=== PATIENT | male | born 1935 | race Caucasian/White ===

== ENCOUNTER 2020-08-03 08:34 | Inpatient (IN) ==
--- NOTE | 2020-08-02 16:20 | XRay Report ---
CLINICAL INFORMATION: Pre-op COMPARISON: 12/03/2017 FINDINGS: Sternotomy changes noted. Heart size, mediastinum and pulmonary vessels are normal. Lungs are clear. No effusions. IMPRESSION: No acute cardiopulmonary disease - stable Interpreted and Authenticated by: Chase Falcon 08/02/20
[2020-08-02 19:47] LABS: Basophils # (Auto) 0.04 K/mcL (0.00-0.20); Basophils % (Auto) 0.8 % (0.0-2.0); Eosinophils # (Auto) 0.07 K/mcL (0.00-0.70); Eosinophils % (Auto) 1.5 % (0.0-7.0); Hematocrit 34.4 % (41.0-55.0); Lymphocytes # (Auto) 1.09 K/mcL (1.50-4.80); Lymphocytes % (Auto) 22.9 % (15.0-49.0); Mean Platelet Volume 9.7 fL (7.4-10.4); Monocytes # (Auto) 0.52 K/mcL (0.10-0.90); Monocytes % (Auto) 10.9 % (1.0-12.0); Neutrophils % (Auto) 63.9 % (38.0-78.0); Platelet Count 223 K/mcL (140-440); RBC 3.74 M/mcL (4.50-5.90); Red Cell Distribution Width 14.1 % (11.5-14.5); WBC 4.8 K/mcL (4.5-11.0)
[2020-08-02 21:48] LABS: INR 1.3 (0.9-1.1); Prothrombin Time 17.1 sec (11.9-14.5)
[2020-08-02 22:01] LABS: Partial Thromboplastin Time 35.6 sec (20.0-37.0)
[2020-08-03 00:19] LABS: ALT/SGPT 17 U/L (<40); AST/SGOT 18 U/L (<40); Albumin 4.1 gm/dL (3.2-5.2); Albumin/Globulin Ratio 1.5 (1.0-2.3); Alkaline Phosphatase 93 U/L (39-117); Bilirubin,Total 0.3 mg/dL (0.1-1.0); Blood Urea Nitrogen 19 mg/dL (8-23); Calcium 9.1 mg/dL (8.6-10.4); Carbon Dioxide 22 mmol/L (22-30); Chloride 101 mmol/L (96-108); Globulin 2.7 gm/dL (2.2-3.7); Glomerular Filtration Rate 79; Glucose 124 mg/dL (70-105)
[~2020-08-03 08:34] MED LIST: LEVOFLOXACIN 750 MG/150 ML BAG IV SCH; metroNIDAZOLE 500 MG/100 ML BAG IV SCH
[2020-08-03] MEDS ORDERED: 0.9 % SODIUM CHLORIDE 250 ML IV SCH (09:00)
[2020-08-03] MEDS ORDERED: IPRATROPIUM/ALBUTEROL 3 ML AMPUL.NEB NEB PRN ×2 (09:00→17:00)
[2020-08-03] MEDS ORDERED: SCOPOLAMINE 1 PATCH PATCH TOPICAL PRN (09:00)
--- NOTE | 2020-08-03 12:13 | EKG ---
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 Measurements Intervals [place] Rate: 59 P: 40 UT: 216 QRS: 18 QRSD: 90 T: 55 QT: 424 QTc: 420 Interpretive Statements SINUS RHYTHM Since previous ECG of 12-03-2017, NSC NORMAL TRACING Electronically Signed On 08-03-2020 12:12:51 PDT by Sharad Ross M.D. /store/[email or web address]/[id number]
[2020-08-03] MEDS ORDERED: ONDANSETRON 4 MG/2 ML VIAL ONE (14:45)
[2020-08-03] MEDS ORDERED: ROCURONIUM 10 MG/ML ML IV ONE (14:45)
[2020-08-03] MEDS ORDERED: fentaNYL 100 MCG/2 ML VIAL IV ONE (14:45)
[2020-08-03] MEDS ORDERED: HYDROmorphone 1 MG/ML SYRINGE ONE (14:45)
[2020-08-03] MEDS ORDERED: LIDOCAINE HCL/PF 100 MG/5 ML SYRINGE IV ONE (14:45)
[2020-08-03] MEDS ORDERED: ROPIVACAINE HCL/PF 20 ML VIAL IJ ONE (14:45)
[2020-08-03] MEDS ORDERED: DEXAMETHASONE 10 MG/ML VIAL ONE (14:45)
[2020-08-03] MEDS ORDERED: PROPOFOL 200 MG/20 ML VIAL IV ONE (14:45)
[2020-08-03] MEDS ORDERED: GLYCOPYRROLATE 0.2 MG/ML VIAL IV ONE (14:45)
[2020-08-03] MEDS ORDERED: ePHEDrine 50 MG/ML AMPUL IV ONE (14:45)
[2020-08-03] MEDS ORDERED: ESMOLOL 100 MG/10 ML VIAL IV ONE (14:45)
[2020-08-03] MEDS ORDERED: KETAMINE 50 MG/ML ML ONE (14:45)
[2020-08-03] MEDS ORDERED: METOPROLOL TARTRATE 5 MG/5 ML VIAL IV ONE (14:45)
[2020-08-03] MEDS ORDERED: SUGAMMADEX SODIUM 200 MG/2 ML VIAL IV ONE (14:45)
[2020-08-03] MEDS ORDERED: MAGNESIUM SULFATE 2 GM/50 ML BAG IV ONE (14:45)
[2020-08-03] MEDS ORDERED: LABETALOL 5 MG/ML ML IV ONE ×2 (15:22→15:28)
--- NOTE | 2020-08-03 16:52 | Brief Operative Note ---
Brief Operative Note Date of procedure: 08/03/20 Pre-op diagnosis: sigmoid colon stricture Post-op diagnosis: other (acute and chronic diverticulitis with sigmoid colon stricture) Procedure: sigmoid colectomy Grafts/Implants: No Anesthesia: GETA Findings: 10 inch segment of sigmoid colon with acute abd chronic stricture with high grade stricture Complications: none Surgeon: Pancho Patel Estimated blood loss (cc): 60 Specimens Removed/Pathology: other (sigmoid colon) Condition: stable Disposition: PACU
[2020-08-03] MEDS ORDERED: ONDANSETRON 4 MG/2 ML VIAL IV PRN ×2 (16:58→17:00)
[2020-08-03] MEDS ORDERED: HYDROmorphone 1 MG/ML SYRINGE IV PRN (16:58)
[2020-08-03] MEDS ORDERED: PROMETHAZINE 25 MG/ML VIAL IV PRN (16:58)
[2020-08-03] MEDS ORDERED: ACETAMINOPHEN 1,000 MG/100 ML BAG IV ONE (17:00)
[2020-08-03] MEDS ORDERED: LABETALOL 5 MG/ML ML IV PRN (17:00)
[2020-08-03] MEDS ORDERED: BENZOCAINE/MENTHOL 1 LOZENGE PO PRN (17:00)
[2020-08-03] MEDS ORDERED: METHOCARBAMOL 1,000 MG/10 ML VIAL IV PRN (17:00)
[2020-08-03] MEDS ORDERED: METOPROLOL TARTRATE 5 MG/5 ML VIAL IV PRN (17:00)
[2020-08-03] MEDS ORDERED: LACTATED RINGERS 1,000 ML IV SCH (17:00)
[2020-08-03] MEDS ORDERED: fentaNYL 100 MCG/2 ML VIAL IV PRN (17:00)
[2020-08-03] MEDS ORDERED: LACTATED RINGERS 250 ML IV PRN (17:00)
[2020-08-03] MEDS ORDERED: NALOXONE HCL 0.4 MG/ML VIAL IV PRN (17:00)
[2020-08-03] MEDS: LACTATED RINGERS 1,000 ML IV SCH ×2 (17:45→20:43)
[2020-08-03] MEDS: PANTOPRAZOLE 40 MG VIAL IV SCH (17:45)
[2020-08-03] MEDS: metroNIDAZOLE 500 MG/100 ML BAG IV SCH (17:55)
[2020-08-03] MEDS: METOCLOPRAMIDE 10 MG/2 ML VIAL IV SCH (17:56)
[2020-08-03] MEDS: 0.9 % SODIUM CHLORIDE 10 ML SYRINGE IV SCH (20:44)
[2020-08-04] MEDS ORDERED: ACETAMINOPHEN 1,000 MG/100 ML BAG IV SCH
[2020-08-04] MEDS: metroNIDAZOLE 500 MG/100 ML BAG IV SCH ×5 (00:16→17:51)
[2020-08-04] MEDS: METOCLOPRAMIDE 10 MG/2 ML VIAL IV SCH ×5 (00:16→23:50)
[2020-08-04] MEDS: LACTATED RINGERS 1,000 ML IV SCH ×3 (01:00→20:23)
[2020-08-04] MEDS: 0.9 % SODIUM CHLORIDE 10 ML SYRINGE IV SCH ×3 (05:13→22:58)
[2020-08-04 06:13] LABS: Basophils # (Auto) 0.01 K/mcL (0.00-0.20); Basophils % (Auto) 0.1 % (0.0-2.0); Eosinophils # (Auto) 0 K/mcL (0.00-0.70); Eosinophils % (Auto) 0 % (0.0-7.0); Hematocrit 31.7 % (41.0-55.0); Hemoglobin 10.3 g/dL (13.5-16.5); Lymphocytes # (Auto) 0.57 K/mcL (1.50-4.80); Lymphocytes % (Auto) 8.1 % (15.0-49.0); Mean Cell Volume 89.8 fL (80.0-100.0); Mean Corpuscular HGB Conc 32.5 g/dL (31.0-36.0); Mean Platelet Volume 9.7 fL (7.4-10.4); Monocytes # (Auto) 0.44 K/mcL (0.10-0.90); Monocytes % (Auto) 6.3 % (1.0-12.0); Neutrophils % (Auto) 85.5 % (38.0-78.0); Platelet Count 172 K/mcL (140-440); RBC 3.53 M/mcL (4.50-5.90); Red Cell Distribution Width 13.5 % (11.5-14.5)
[2020-08-04 06:37] LABS: ALT/SGPT 12 U/L (<40); AST/SGOT 13 U/L (<40); Albumin 3.4 gm/dL (3.2-5.2); Albumin/Globulin Ratio 1.4 (1.0-2.3); Alkaline Phosphatase 88 U/L (39-117); Bilirubin,Direct < 0.2 mg/dL (0-0.3); Bilirubin,Total 0.3 mg/dL (0.1-1.0); Blood Urea Nitrogen 17 mg/dL (8-23); Calcium 8.5 mg/dL (8.6-10.4); Carbon Dioxide 27 mmol/L (22-30); Chloride 100 mmol/L (96-108); Globulin 2.5 gm/dL (2.2-3.7); Glomerular Filtration Rate 87; Glucose 145 mg/dL (70-105); Lactate Dehydrogenase 149 U/L (135-225); Triglycerides 25 mg/dL (<150); Uric Acid 4.3 mg/dL (2.5-8.0)
[2020-08-04] MEDS: PANTOPRAZOLE 40 MG VIAL IV SCH ×2 (07:34→16:36)
[2020-08-04] MEDS: LEVOFLOXACIN 750 MG/150 ML BAG IV SCH (09:03)
[2020-08-04] MEDS: ACETAMINOPHEN 1,000 MG/100 ML BAG IV SCH ×3 (13:01→23:40)
--- NOTE | 2020-08-04 13:09 | General Surgery Progress Note ---
SUBJECTIVE Subjective Patient information: Note initiated : 08/04/20 at 1:02 pm Service Date, if different from initiated Date: [] Patient: Nixon Stratton 85 y/o M admitted on 08/03/20 for Sigmoid Colectomy. Chief Complaint: [] Principal diagnosis: Postop sigmoid colectomy; diverticulitis Interval history: Patient is doing well status post sigmoid colectomy with primary anastomosis. He had about an 8 to 10 inch segment of acute and chronic inflammation of the sigmoid with acute and chronic adhesions in the pelvis to the bladder and small bowel. His operation proceeded uneventfully. Patient is doing well. His pain is controlled. White blood count 7, hemoglobin 10.3, hematocrit 31.7, potassium 4.3, BUN 17, creatinine 0.7. Constitutional Vitals: Vital Signs Temp Pulse Resp BP Pulse Ox 97.5 F 66 18 154/75 97 08/04/20 12:00 08/04/20 12:00 08/04/20 12:00 08/04/20 12:00 08/04/20 12:00 Period Temp Pulse Resp BP Sys/Fan Pulse Ox Last 24 Hr 96.4 F-98.0 F 52-76 10-21 104-154/49-75 90-100 Intake and Output 08/03/20 08/04/20 08/04/20 21:59 05:59 13:59 Intake Total 2950 1200 350 Output Total 550 550 Balance 2400 650 350 Weight 162 lb 11.2 oz 162 lb 11.2 oz Patient Weight 08/05/20 05:59 Weight 162 lb 11.2 oz Intake & Output: Intake & Output 08/03/20 08/04/20 08/04/20 21:59 05:59 13:59 Intake Total 2950 1200 350 Output Total 550 550 Balance 2400 650 350 Weight 162 lb 11.2 oz 162 lb 11.2 oz Intake: IV 450 1100 350 Lactated Ringers 1,000 ml @ 125 1000 mls/hr IV .Q8H [facility] Rx#: [id number] Oral 100 IV - Manual Only 2500 Output: Gastric Drainage 50 Right Nare 50 Drainage 50 Right Lower ANG Drain 50 Urine Catheter Amount 450 Void Amount 250 Estimated Blood Loss 300 Other: Urine Appearance Clear Clear Urine Color Dark Yellow Dark Yellow Urine Odor Normal Normal Head Head exam: Present atraumatic, normal inspection and normocephalic Eye Eye exam: Present EOMI and PERRL Pupils: Present normal accommodation and PERRL ENT ENT exam: Present mucous membranes moist and normal oropharynx Neck Neck exam: Present full ROM and normal inspection; Absent lymphadenopathy and tenderness Respiratory Respiratory exam: Present normal respiratory exam and CTAB; Absent rales, rhonchi and wheezes Cardiovascular Cardiovascular exam: Present normal rate and rhythm, RRR, +S1 and +S2; Absent JVD GI/Abdominal GI/Abdominal exam: Present normal bowel sounds, soft, distended (Mild distention with good active bowel sounds) and tenderness (Mild incisional tenderness) Extremities Exam Extremities exam: Present full ROM, normal capillary refill, normal inspection and neurovascular intact; Absent calf tenderness and pedal edema Back Exam Back exam: Present full ROM and normal inspection Neurological Exam Neurological exam: Present alert, motor sensory deficit, normal gait and oriented X3 Psychiatric Psychiatric exam: Present normal affect and normal mood A/P Assessment and plan (1) Stricture of sigmoid colon: Status: Acute (2) Diverticulitis of sigmoid colon: Status: Resolved Comment: Diagnosed on CT scan, although atypical symptoms. Treatments antibiotics x2 in the last 5 months Repeat CRP in 2 months (3) Iron deficiency anemia: Status: Acute Comment: Iron deficiency anemia improved after colonoscopy and treatment of diverticulitis as well as treatment of internal hemorrhoids with Anusol We will check CBC and iron studies in 2 months Qualifiers: Iron deficiency anemia type: chronic blood loss Qualified Code(s): D50.0 - Iron deficiency anemia secondary to blood loss (chronic) (4) Hypertension, essential: Status: Chronic Comment: "white coat" hypertension Well-controlled per home logs. Continue metoprolol and losartan at current dose. Low-sodium diet. Continue to monitor at home, and patient to let me know if greater than 140/90 at rest Narrative A/P Narrative: Patient is clinically stable. His pain is well controlled. We will continue on present therapy. Time Spent With Patient Time: Total time spent is greater than 50% in coordination of care (as documented) at patient's floor/unit and/or counseling patient:
[2020-08-05] MEDS: metroNIDAZOLE 500 MG/100 ML BAG IV SCH ×4 (00:33→17:57)
[2020-08-05] MEDS: ACETAMINOPHEN 1,000 MG/100 ML BAG IV SCH ×3 (05:27→17:18)
[2020-08-05] MEDS: METOCLOPRAMIDE 10 MG/2 ML VIAL IV SCH ×4 (05:27→17:18)
[2020-08-05] MEDS: LACTATED RINGERS 1,000 ML IV SCH ×3 (05:36→21:16)
[2020-08-05] MEDS: 0.9 % SODIUM CHLORIDE 10 ML SYRINGE IV SCH ×3 (05:36→23:13)
[2020-08-05 06:16] LABS: Basophils # (Auto) 0.02 K/mcL (0.00-0.20); Basophils % (Auto) 0.4 % (0.0-2.0); Eosinophils # (Auto) 0.02 K/mcL (0.00-0.70); Eosinophils % (Auto) 0.4 % (0.0-7.0); Hematocrit 31.1 % (41.0-55.0); Hemoglobin 10.2 g/dL (13.5-16.5); Lymphocytes # (Auto) 0.86 K/mcL (1.50-4.80); Lymphocytes % (Auto) 15.6 % (15.0-49.0); Mean Cell Volume 89.9 fL (80.0-100.0); Mean Corpuscular HGB Conc 32.8 g/dL (31.0-36.0); Mean Platelet Volume 9.4 fL (7.4-10.4); Monocytes # (Auto) 0.42 K/mcL (0.10-0.90); Monocytes % (Auto) 7.6 % (1.0-12.0); Platelet Count 192 K/mcL (140-440); RBC 3.46 M/mcL (4.50-5.90); Red Cell Distribution Width 13.8 % (11.5-14.5); WBC 5.5 K/mcL (4.5-11.0)
[2020-08-05] MEDS: PANTOPRAZOLE 40 MG VIAL IV SCH ×2 (07:01→16:48)
[2020-08-05 07:09] LABS: ALT/SGPT 11 U/L (<40); AST/SGOT 14 U/L (<40); Albumin 3.4 gm/dL (3.2-5.2); Albumin/Globulin Ratio 1.4 (1.0-2.3); Alkaline Phosphatase 83 U/L (39-117); Bilirubin,Direct < 0.2 mg/dL (0-0.3); Bilirubin,Total 0.3 mg/dL (0.1-1.0); Blood Urea Nitrogen 11 mg/dL (8-23); Calcium 8.3 mg/dL (8.6-10.4); Carbon Dioxide 26 mmol/L (22-30); Chloride 102 mmol/L (96-108); Globulin 2.5 gm/dL (2.2-3.7); Glomerular Filtration Rate 83; Glucose 90 mg/dL (70-105); Lactate Dehydrogenase 168 U/L (135-225); Phosphorous 2.7 mg/dL (2.5-4.5); Triglycerides 50 mg/dL (<150); Uric Acid 4.6 mg/dL (2.5-8.0)
[2020-08-05] MEDS: LEVOFLOXACIN 750 MG/150 ML BAG IV SCH (08:17)
--- NOTE | 2020-08-05 12:27 | General Surgery Progress Note ---
SUBJECTIVE Subjective Patient information: Note initiated : 08/05/20 at 12:24 pm Service Date, if different from initiated Date: [] Patient: Nixon Stratton 85 y/o M admitted on 08/03/20 for Sigmoid Colectomy. Chief Complaint: [] Principal diagnosis: Postop sigmoid colectomy; diverticulitis Interval history: Patient is doing well. His pain is controlled. He has not had any flatus so far. There is no significant abdominal distention. He denies nausea. Potassium is 4, BUN 11, creatinine 0.8, white blood count 5.5, hematocrit hemoglobin 10.2, hematocrit 31.1. Constitutional Vitals: Vital Signs Temp Pulse Resp BP Pulse Ox 98 F 77 18 144/78 95 08/05/20 11:38 08/05/20 11:38 08/05/20 11:38 08/05/20 11:38 08/05/20 11:38 Period Temp Pulse Resp BP Sys/Fan Pulse Ox Last 24 Hr 96.6 F-98.8 F 62-77 16-18 142-151/70-79 93-95 Intake and Output 08/04/20 08/05/20 08/05/20 21:59 05:59 13:59 Intake Total 1320 1420 350 Output Total 1460 1566 400 Balance -140 -146 -50 Weight 160 lb 14.4 oz Intake & Output: Intake & Output 08/04/20 08/05/20 08/05/20 21:59 05:59 13:59 Intake Total 1320 1420 350 Output Total 1460 1566 400 Balance -140 -146 -50 Weight 160 lb 14.4 oz Intake: IV 1200 1300 350 Lactated Ringers 1,000 ml @ 125 1000 1000 mls/hr IV .Q8H [facility] Rx#: [id number] Oral 120 120 Output: Gastric Drainage 260 290 Right Nare 260 290 Drainage 51 Right Lower ANG Drain 51 Urine Catheter Amount 1200 575 Void Amount 650 400 Other: Urine Appearance Clear Urine Color Dark Yellow Urine Odor Normal Eye Eye exam: Present EOMI and PERRL Pupils: Present normal accommodation and PERRL ENT ENT exam: Present mucous membranes moist and normal oropharynx Neck Neck exam: Present full ROM and normal inspection; Absent lymphadenopathy and tenderness Respiratory Respiratory exam: Present normal respiratory exam and CTAB; Absent rales, rhonchi and wheezes Cardiovascular Cardiovascular exam: Present normal rate and rhythm, RRR, +S1 and +S2; Absent JVD GI/Abdominal GI/Abdominal exam: Present normal bowel sounds, soft, distended (Mild distention with good active bowel sounds) and tenderness (Mild incisional tenderness) Extremities Exam Extremities exam: Present full ROM, normal capillary refill, normal inspection and neurovascular intact; Absent calf tenderness and pedal edema Neurological Exam Neurological exam: Present alert, motor sensory deficit, normal gait and oriented X3 Psychiatric Psychiatric exam: Present normal affect and normal mood A/P Assessment and plan (1) Stricture of sigmoid colon: Status: Acute (2) Diverticulitis of sigmoid colon: Status: Resolved Comment: Diagnosed on CT scan, although atypical symptoms. Treatments antibiotics x2 in the last 5 months Repeat CRP in 2 months (3) Hypertension, essential: Status: Chronic Comment: "white coat" hypertension Well-controlled per home logs. Continue metoprolol and losartan at current dose. Low-sodium diet. Continue to monitor at home, and patient to let me know if greater than 140/90 at rest Narrative A/P Narrative: Patient is stable and improved. We will continue on present therapy. Patient encouraged to be up and ambulate. Time Spent With Patient Time: Total time spent is greater than 50% in coordination of care (as documented) at patient's floor/unit and/or counseling patient:
[2020-08-06] MEDS: ACETAMINOPHEN 1,000 MG/100 ML BAG IV SCH ×4 (00:59→17:45)
[2020-08-06] MEDS: METOCLOPRAMIDE 10 MG/2 ML VIAL IV SCH ×4 (01:00→17:37)
[2020-08-06] MEDS: metroNIDAZOLE 500 MG/100 ML BAG IV SCH ×4 (01:51→18:10)
[2020-08-06] MEDS: 0.9 % SODIUM CHLORIDE 10 ML SYRINGE IV SCH ×3 (06:03→21:35)
[2020-08-06] MEDS: LACTATED RINGERS 1,000 ML IV SCH ×2 (06:12→08:29)
[2020-08-06 08:29] LABS: Basophils # (Auto) 0.03 K/mcL (0.00-0.20); Basophils % (Auto) 0.6 % (0.0-2.0); Eosinophils % (Auto) 1.9 % (0.0-7.0); Hematocrit 32.9 % (41.0-55.0); Hemoglobin 10.7 g/dL (13.5-16.5); Lymphocytes # (Auto) 0.99 K/mcL (1.50-4.80); Mean Cell Volume 90.4 fL (80.0-100.0); Mean Corpuscular HGB Conc 32.5 g/dL (31.0-36.0); Mean Platelet Volume 9.9 fL (7.4-10.4); Monocytes # (Auto) 0.36 K/mcL (0.10-0.90); Monocytes % (Auto) 6.9 % (1.0-12.0); Neutrophils % (Auto) 71.6 % (38.0-78.0); Platelet Count 188 K/mcL (140-440); RBC 3.64 M/mcL (4.50-5.90); Red Cell Distribution Width 13.4 % (11.5-14.5); WBC 5.2 K/mcL (4.5-11.0)
[2020-08-06 08:56] LABS: ALT/SGPT 11 U/L (<40); AST/SGOT 19 U/L (<40); Albumin 3.5 gm/dL (3.2-5.2); Albumin/Globulin Ratio 1.5 (1.0-2.3); Alkaline Phosphatase 79 U/L (39-117); Bilirubin,Direct < 0.2 mg/dL (0-0.3); Bilirubin,Total 0.4 mg/dL (0.1-1.0); Blood Urea Nitrogen 9 mg/dL (8-23); Calcium 8.6 mg/dL (8.6-10.4); Carbon Dioxide 24 mmol/L (22-30); Chloride 98 mmol/L (96-108); Globulin 2.4 gm/dL (2.2-3.7); Glomerular Filtration Rate 87; Glucose 71 mg/dL (70-105); Lactate Dehydrogenase 201 U/L (135-225); Phosphorous 2.7 mg/dL (2.5-4.5); Triglycerides 52 mg/dL (<150); Uric Acid 5.1 mg/dL (2.5-8.0)
[2020-08-06] MEDS: LEVOFLOXACIN 750 MG/150 ML BAG IV SCH (09:18)
[2020-08-06] MEDS: PANTOPRAZOLE 40 MG VIAL IV SCH ×2 (09:37→16:48)
--- NOTE | 2020-08-06 11:58 | General Surgery Progress Note ---
SUBJECTIVE Subjective Patient information: Note initiated : 08/06/20 at 11:54 am Service Date, if different from initiated Date: [] Patient: Nixon Stratton 85 y/o M admitted on 08/03/20 for Sigmoid Colectomy. Chief Complaint: [] Principal diagnosis: Postop sigmoid colectomy; diverticulitis Interval history: Patient is doing well. His pain is controlled. He has some difficulty with the NG tube. He has not had flatus so far. He denies chest discomfort or shortness of breath. Potassium 3.6, BUN 9, creatinine 0.7, white blood count 5.2, hemoglobin 10.7, hematocrit 32.9. Constitutional Vitals: Vital Signs Temp Pulse Resp BP Pulse Ox 97.6 F 73 18 150/76 96 08/06/20 11:25 08/06/20 11:25 08/06/20 11:25 08/06/20 11:25 08/06/20 11:25 Period Temp Pulse Resp BP Sys/Fan Pulse Ox Last 24 Hr 97.2 F-98.2 F 63-73 16-18 148-167/76-83 94-96 Intake and Output 08/05/20 08/06/20 08/06/20 21:59 05:59 13:59 Intake Total 1200 1250 200 Output Total 1355 1399 300 Balance -155 -149 -100 Weight 157 lb 4.8 oz Intake & Output: Intake & Output 08/05/20 08/06/20 08/06/20 21:59 05:59 13:59 Intake Total 1200 1250 200 Output Total 1355 1399 300 Balance -155 -149 -100 Weight 157 lb 4.8 oz Intake: IV 1200 1200 200 Lactated Ringers 1,000 ml @ 125 1000 1000 mls/hr IV .Q8H [facility] Rx#: [id number] Oral 50 Output: Gastric Drainage 750 50 Right Nare 750 50 Drainage 30 24 Right Lower ANG Drain 30 24 Void Amount 575 1325 300 Other: Urine Appearance Clear Clear Clear Urine Color Pale Pale Light Tali Urine Odor Normal Normal Head Head exam: Present atraumatic, normal inspection and normocephalic Eye Eye exam: Present EOMI and PERRL Pupils: Present normal accommodation and PERRL ENT ENT exam: Present mucous membranes moist and normal oropharynx Neck Neck exam: Present full ROM and normal inspection; Absent lymphadenopathy and tenderness Respiratory Respiratory exam: Present normal respiratory exam and CTAB; Absent rales, rhonchi and wheezes Cardiovascular Cardiovascular exam: Present normal rate and rhythm, RRR, +S1 and +S2; Absent JVD GI/Abdominal GI/Abdominal exam: Present normal bowel sounds, soft, distended (Mild distention with good active bowel sounds) and tenderness (Mild incisional tenderness) Extremities Exam Extremities exam: Present full ROM, normal capillary refill, normal inspection and neurovascular intact; Absent calf tenderness and pedal edema Neurological Exam Neurological exam: Present alert, motor sensory deficit, normal gait and oriented X3 Psychiatric Psychiatric exam: Present normal affect and normal mood A/P Assessment and plan (1) Stricture of sigmoid colon: Status: Acute (2) Diverticulitis of sigmoid colon: Status: Resolved Comment: Diagnosed on CT scan, although atypical symptoms. Treatments antibiotics x2 in the last 5 months Repeat CRP in 2 months (3) Hypertension, essential: Status: Chronic Comment: "white coat" hypertension Well-controlled per home logs. Continue metoprolol and losartan at current dose. Low-sodium diet. Continue to monitor at home, and patient to let me know if greater than 140/90 at rest Narrative A/P Narrative: Continue present therapy Decrease IV to 75 cc/h Time Spent With Patient Time: Total time spent is greater than 50% in coordination of care (as documented) at patient's floor/unit and/or counseling patient:
[2020-08-06] MEDS ORDERED: LACTATED RINGERS 1,000 ML IV SCH (12:00)
--- NOTE | 2020-08-06 18:51 | EKG ---
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 Measurements Intervals [place] Rate: 61 P: 12 DC: 180 QRS: 6 QRSD: 94 T: 57 QT: 452 QTc: 456 Interpretive Statements SINUS RHYTHM MINIMAL ST DEPRESSION, ANTEROLATERAL LEADS Since previous ECG of 08-02-2020, 1529, NSC BORDERLINE TRACING Electronically Signed On 08-06-2020 18:51:49 PDT by Sharad Ross M.D. /store/M0/[id number]
[2020-08-07] MEDS: METOCLOPRAMIDE 10 MG/2 ML VIAL IV SCH ×4 (00:55→17:31)
[2020-08-07] MEDS: ACETAMINOPHEN 1,000 MG/100 ML BAG IV SCH ×4 (01:00→17:30)
[2020-08-07] MEDS: metroNIDAZOLE 500 MG/100 ML BAG IV SCH ×4 (01:35→18:59)
[2020-08-07] MEDS: 0.9 % SODIUM CHLORIDE 10 ML SYRINGE IV SCH ×3 (05:50→22:30)
[2020-08-07] MEDS: PANTOPRAZOLE 40 MG VIAL IV SCH ×2 (06:45→17:31)
[2020-08-07] MEDS: LEVOFLOXACIN 750 MG/150 ML BAG IV SCH (08:17)
--- NOTE | 2020-08-07 13:23 | General Surgery Progress Note ---
SUBJECTIVE Subjective Patient information: Note initiated : 08/07/20 at 1:17 pm Service Date, if different from initiated Date: [] Patient: Nixon Stratton 85 y/o M admitted on 08/03/20 for Sigmoid Colectomy. Chief Complaint: [] Principal diagnosis: Postop sigmoid colectomy; diverticulitis Interval history: patient is doing well. He has had multiple episodes of flatus. He denies nausea. His pain is well controlled. Constitutional Vitals: Vital Signs Temp Pulse Resp BP Pulse Ox 97.6 F 72 18 140/89 94 08/07/20 11:52 08/07/20 11:52 08/07/20 11:52 08/07/20 11:52 08/07/20 11:52 Period Temp Pulse Resp BP Sys/Fan Pulse Ox Last 24 Hr 97.4 F-98.6 F 67-72 16-18 135-155/70-89 93-96 Intake and Output 08/06/20 08/07/20 08/07/20 21:59 05:59 13:59 Intake Total 1527 290 450 Output Total 370 855 300 Balance 1157 -565 150 Weight 157 lb 9 oz Intake & Output: Intake & Output 08/06/20 08/07/20 08/07/20 21:59 05:59 13:59 Intake Total 1527 290 450 Output Total 370 855 300 Balance 1157 -565 150 Weight 157 lb 9 oz Intake: IV 1527 200 450 Lactated Ringers 1,000 ml @ 75 1327 mls/hr IV .[id number] [facility] Rx#: [id number] Oral 90 Output: Gastric Drainage 90 Right Nare 90 Drainage 20 15 Right Lower ANG Drain 20 15 Void Amount 350 750 300 Other: Urine Appearance Clear Clear Urine Color Bright Yellow Bright Yellow Urine Odor Normal Head Head exam: Present atraumatic, normal inspection and normocephalic Eye Eye exam: Present EOMI and PERRL Pupils: Present normal accommodation and PERRL ENT ENT exam: Present mucous membranes moist and normal oropharynx Neck Neck exam: Present full ROM and normal inspection; Absent lymphadenopathy and tenderness Respiratory Respiratory exam: Present normal respiratory exam and CTAB; Absent rales, rhonchi and wheezes Cardiovascular Cardiovascular exam: Present normal rate and rhythm, RRR, +S1 and +S2; Absent JVD GI/Abdominal GI/Abdominal exam: Present normal bowel sounds, soft, distended (Mild distention with good active bowel sounds) and tenderness (Mild incisional tenderness) Extremities Exam Extremities exam: Present full ROM, normal capillary refill, normal inspection and neurovascular intact; Absent calf tenderness and pedal edema Neurological Exam Neurological exam: Present alert, motor sensory deficit, normal gait and oriented X3 Psychiatric Psychiatric exam: Present normal affect and normal mood A/P Assessment and plan (1) Stricture of sigmoid colon: Status: Acute (2) Diverticulitis of sigmoid colon: Status: Resolved Comment: Diagnosed on CT scan, although atypical symptoms. Treatments antibiotics x2 in the last 5 months Repeat CRP in 2 months (3) Hypertension, essential: Status: Chronic Comment: "white coat" hypertension Well-controlled per home logs. Continue metoprolol and losartan at current dose. Low-sodium diet. Continue to monitor at home, and patient to let me know if greater than 140/90 at rest Narrative A/P Narrative: D/C NASOGASTRIC TUBE CLEAR LIQUIDS CBC IP Time Spent With Patient Time: Total time spent is greater than 50% in coordination of care (as documented) at patient's floor/unit and/or counseling patient:
[2020-08-08] MEDS: METOCLOPRAMIDE 10 MG/2 ML VIAL IV SCH ×5 (00:31→23:28)
[2020-08-08] MEDS: metroNIDAZOLE 500 MG/100 ML BAG IV SCH ×5 (00:31→23:28)
[2020-08-08] MEDS: ACETAMINOPHEN 1,000 MG/100 ML BAG IV SCH ×3 (00:35→11:18)
[2020-08-08] MEDS: 0.9 % SODIUM CHLORIDE 10 ML SYRINGE IV SCH ×3 (06:11→21:35)
[2020-08-08] MEDS: PANTOPRAZOLE 40 MG VIAL IV SCH ×2 (07:25→17:16)
[2020-08-08] MEDS: LEVOFLOXACIN 750 MG/150 ML BAG IV SCH (08:39)
--- NOTE | 2020-08-08 12:52 | General Surgery Progress Note ---
SUBJECTIVE Subjective Patient information: Note initiated : 08/08/20 at 12:48 pm Service Date, if different from initiated Date: [] Patient: Nixon Stratton 85 y/o M admitted on 08/03/20 for Sigmoid Colectomy. Chief Complaint: [] Principal diagnosis: Postop sigmoid colectomy; diverticulitis Interval history: Patient is stable and improved. He has had large volume of flatus and at least 5 bowel movements. He is tolerating liquid diet without nausea. His pain is adequately controlled. Constitutional Vitals: Vital Signs Temp Pulse Resp BP Pulse Ox 98.3 F 76 18 139/77 94 08/08/20 11:25 08/08/20 11:25 08/08/20 11:25 08/08/20 11:25 08/08/20 11:25 Period Temp Pulse Resp BP Sys/Fan Pulse Ox Last 24 Hr 97.3 F-98.5 F 66-86 14-18 139-162/71-86 94-97 Intake and Output 08/07/20 08/08/20 08/08/20 21:59 05:59 13:59 Intake Total 200 700 450 Output Total 370 330 Balance -170 370 450 Weight 157 lb 9 oz Intake & Output: Intake & Output 08/07/20 08/08/20 08/08/20 21:59 05:59 13:59 Intake Total 200 700 450 Output Total 370 330 Balance -170 370 450 Weight 157 lb 9 oz Intake: IV 200 100 450 Oral 600 Output: Drainage 20 30 Right Lower ANG Drain 20 30 Void Amount 350 300 Other: Urine Color Dark Yellow Stool Size Small Small Stool Color Dark Red Blood Brown Stool Consistency Loose Soft # Voids 1 1 # Bowel Movements 1 Neck Neck exam: Present full ROM and normal inspection; Absent lymphadenopathy and tenderness Respiratory Respiratory exam: Present normal respiratory exam and CTAB; Absent rales, rhonchi and wheezes Cardiovascular Cardiovascular exam: Present normal rate and rhythm, RRR, +S1 and +S2; Absent JVD GI/Abdominal GI/Abdominal exam: Present normal bowel sounds, soft, distended (Mild distention with good active bowel sounds) and tenderness (Mild incisional tenderness) Extremities Exam Extremities exam: Present full ROM, normal capillary refill, normal inspection and neurovascular intact; Absent calf tenderness and pedal edema Neurological Exam Neurological exam: Present alert, motor sensory deficit, normal gait and oriented X3 Psychiatric Psychiatric exam: Present normal affect and normal mood A/P Assessment and plan (1) Stricture of sigmoid colon: Status: Acute (2) Diverticulitis of sigmoid colon: Status: Resolved Comment: Diagnosed on CT scan, although atypical symptoms. Treatments antibiotics x2 in the last 5 months Repeat CRP in 2 months (3) Iron deficiency anemia: Status: Acute Comment: Iron deficiency anemia improved after colonoscopy and treatment of diverticulitis as well as treatment of internal hemorrhoids with Anusol We will check CBC and iron studies in 2 months Qualifiers: Iron deficiency anemia type: chronic blood loss Qualified Code(s): D50.0 - Iron deficiency anemia secondary to blood loss (chronic) (4) Hypertension, essential: Status: Chronic Comment: "white coat" hypertension Well-controlled per home logs. Continue metoprolol and losartan at current dose. Low-sodium diet. Continue to monitor at home, and patient to let me know if greater than 140/90 at rest Narrative A/P Narrative: Patient is stable and improved Soft diet CBC and inpatient panel in the morning Time Spent With Patient Time: Total time spent is greater than 50% in coordination of care (as d ocumented) at patient's floor/unit and/or counseling patient:
--- NOTE | 2020-08-08 14:31 | Surgical Pathology Report ---
Histology Microscopic Diagnosis Specimen A- COLON, SIGMOID, SEGMENTAL RESECTION: --- SEVERE DIVERTICULAR DISEASE WITH PERFORATION, PARACOLONIC ABSCESS AND SEROSAL ADHESIONS. --- MULTIPLE BENIGN PARACOLONIC LYMPH NODES WITH REACTIVE FOLLICULAR HYPERPLASIA. --- SURGICAL MARGINS APPEAR VIABLE. --- NO NEOPLASIA OR MALIGNANCY IDENTIFIED. (ACP:sln) Gross Description Received in formalin labeled sigmoid colon, is a segment of sigmoid received with one margin stapled and one margin opened. It is 11.2 cm in length by 3.7 cm in diameter. The serosa is alvarado-wilson and approximately 2.7 cm from the open margin. There is an area of possible adhesion. The opened margin is inked black. The wall is 0.4 cm thick. The mucosa is wilson and plicated and with numerous diverticula. Beneath one of these areas is a 4.5 x 0.9 cm red area. There are multiple candidate lymph nodes identified from less than 0.1 to 0.6 cm. There is an additional wilson fragment of tissue that is 4.2 x 1 x 1.3 cm. [employer] sections are submitted in eight cassettes: A1 - margins; A2 - possible diverticula; A3-A4 - lead customer service representative section bisected of red inflamed area beneath possible diverticula; A5 - area of possible serosal adhesion; A6 - random section; A7 - lead customer service representative sections of candidate lymph nodes; A8 - lead customer service representative of additional fragment. (SCB:bhavin) Electronically Signed Mahendra Najera MD, FCAP Electronically Signed 08/08/2020 14:30
[2020-08-08] MEDS ORDERED: ACETAMINOPHEN 650 MG/65 ML BAG IV PRN (16:49)
[2020-08-09] MEDS: metroNIDAZOLE 500 MG/100 ML BAG IV SCH ×2 (05:24→12:09)
[2020-08-09] MEDS: METOCLOPRAMIDE 10 MG/2 ML VIAL IV SCH ×2 (05:24→12:09)
[2020-08-09] MEDS: 0.9 % SODIUM CHLORIDE 10 ML SYRINGE IV SCH ×2 (05:58→12:10)
[2020-08-09 06:51] LABS: Basophils # (Auto) 0.02 K/mcL (0.00-0.20); Basophils % (Auto) 0.5 % (0.0-2.0); Eosinophils # (Auto) 0.34 K/mcL (0.00-0.70); Eosinophils % (Auto) 8.1 % (0.0-7.0); Hematocrit 33.7 % (41.0-55.0); Hemoglobin 11.4 g/dL (13.5-16.5); Lymphocytes # (Auto) 0.98 K/mcL (1.50-4.80); Lymphocytes % (Auto) 23.4 % (15.0-49.0); Mean Cell Volume 86.6 fL (80.0-100.0); Mean Corpuscular HGB Conc 33.8 g/dL (31.0-36.0); Mean Platelet Volume 9.1 fL (7.4-10.4); Monocytes # (Auto) 0.44 K/mcL (0.10-0.90); Monocytes % (Auto) 10.5 % (1.0-12.0); Neutrophils % (Auto) 57.5 % (38.0-78.0); Platelet Count 187 K/mcL (140-440); RBC 3.89 M/mcL (4.50-5.90); Red Cell Distribution Width 13.5 % (11.5-14.5); WBC 4.2 K/mcL (4.5-11.0)
[2020-08-09 07:39] LABS: ALT/SGPT 20 U/L (<40); AST/SGOT 26 U/L (<40); Albumin 3.3 gm/dL (3.2-5.2); Albumin/Globulin Ratio 1.4 (1.0-2.3); Alkaline Phosphatase 69 U/L (39-117); Bilirubin,Direct < 0.2 mg/dL (0-0.3); Bilirubin,Total 0.3 mg/dL (0.1-1.0); Blood Urea Nitrogen 13 mg/dL (8-23); Calcium 8.3 mg/dL (8.6-10.4); Carbon Dioxide 26 mmol/L (22-30); Chloride 100 mmol/L (96-108); Globulin 2.4 gm/dL (2.2-3.7); Glomerular Filtration Rate 83; Glucose 117 mg/dL (70-105); Lactate Dehydrogenase 174 U/L (135-225); Phosphorous 2.8 mg/dL (2.5-4.5); Triglycerides 103 mg/dL (<150); Uric Acid 6.8 mg/dL (2.5-8.0)
[2020-08-09] MEDS: PANTOPRAZOLE 40 MG VIAL IV SCH (08:24)
[2020-08-09] MEDS: LEVOFLOXACIN 750 MG/150 ML BAG IV SCH (08:25)
--- NOTE | 2020-08-09 13:48 | Discharge Summary ---
Discharge Provider Provider Patient information: Note initiated : 08/09/20 at 1:41 pm Service Date, if different from initiated Date: [] Patient: Nixon Stratton 85 y/o M admitted on 08/03/20 for Sigmoid Colectomy. Chief Complaint: [] Date of admission: 08/03/20 08:34 Discharge date: 08/09/20 Primary care physician: Chase Smallwood DO Admitting clinician: Pancho Patel Attending physician on discharge: Pancho Patel Discharging clinician: Pancho Patel COURSE Hospital Course Hospital course: 85-year-old male with history of recurrent diverticulitis who was found to have a high-grade stricture of the sigmoid colon on 01 August 2020. He was seen in the office and scheduled for sigmoid colectomy which was performed on 03 August 2020. His surgery proceeded uneventfully. He has had an unremarkable postoperative course and is now having regular bowel movements and tolerating diet. He has been afebrile. Patient is stable for discharge Discharge diagnosis: Acute diverticulitis with stricture Secondary discharge diagnosis: Hypertension Chronic anemia Reason for admission: Post procedure sigmoid colectomy Procedures: Sigmoid colectomy 03 August 2020 Pertinent studies/significant findings: None Complications: None Time Spent with Patient Time attestation: Total time spent providing and/or coordinating discharge services: Physical Examination Vital Signs Vital signs: Temp Pulse Resp BP Pulse Ox 96.9 F L 98 H 16 124/84 94 08/09/20 12:00 08/09/20 12:00 08/09/20 12:00 08/09/20 12:00 08/09/20 12:00 General physical appearance General physical exam: well developed, well nourished and no distress Eyes Eye exam: PERRL and normal ocular movement ENT ENT exam: normal pinna, normal nares, normal mucosa and no hearing loss Head Head exam IM: Present atraumatic, normal inspection and normocephalic Neck Neck exam: no masses, no bruits, trachea midline, no lymphadenopathy and no venous distension Cardiovascular Cardiovascular exam IM: Present normal rate and rhythm, JVD, RRR, +S1 and +S2 Respiratory Respiratory exam: normal expansion, normal respiratory effort and clear to auscultation Abdomen Abdomen: Present soft, tender and wound (Operative incision is healing nicely) Integumentary Integumentary: Present no rash, no growths and no abnormal pigmentation Neurologic Neurologic: Present normal coordination and normal sensation Musculoskeletal Musculoskeletal: Present normal gait and normal posture Psychiatric Psychiatric: Present oriented to time, oriented to person, oriented to place, speech is normal and memory intact Discharge Plan Patient/Caregiver Discharge Instructions Activity: increase activity as tolerated Diet: Regular Diet Prescriptions: No Action losartan 50 mg tablet 50 mg PO QDAY Qty: 90 RF: 3 metoprolol succinate 25 mg tablet extended release 24 hr 25 mg PO QDAY Qty: 90 RF: 3 pantoprazole 40 mg tablet,delayed release (DR/EC) 40 mg PO QDAY Qty: 90 RF: 3 trazodone 50 mg tablet 50 mg PO QHS PRN (Reason: insomnia) Qty: 60 RF: 1 finasteride 5 mg tablet 5 mg PO QDAY RF: 0 arginine (L-arginine) 500 mg capsule 500 mg PO QDAY RF: 0 Preparation H (Witch Chelsi) 50 % pads, medicated 1 pad topical BID PRN (Reason: rectal bleed) Qty: 48 RF: 0 acetaminophen [Tylenol Arthritis Pain] 650 mg tablet extended release 1,300 mg PO QHS PRN (Reason: pain) RF: 0 ascorbic acid (vitamin C) 500 mg capsule 500 mg PO QDAY RF: 0 ferrous gluconate 324 mg (38 mg iron) tablet 324 mg PO QDAY RF: 0 Follow Up Plan Follow up with: Pancho Patel MD [Physician] - (Contact the office for an appointment in 1 week) Patient Disposition: Home, Self-Care Prognosis: Good Rehab Potential: Good I certify that the patient requires SNF services: No Overall status at discharge: patient is progressing back to baseline Discharge Orders: Discharge Order (Routine); Ordered 08/09/20 Ordered By: Pancho Patel Pending Pending Pending: Resuscitation Status Full Code Diet GI Soft/Transitional Start SatAug 08 1254 Levofloxacin (Levaquin) 750 mg in 150 mls @ 100 mls/hr IV DAILY COLT; Protocol Last Infusion: 08/09/20 10:19 Dose: 0 mls/hr Documented by: Admin: 08/09/20 08:25 Dose: 100 mls/hr Documented by: Infusion: 08/08/20 09:47 Dose: 0 mls/hr Documented by: Admin: 08/08/20 08:39 Dose: 100 mls/hr Documented by: Infusion: 08/07/20 09:44 Dose: 0 mls/hr Documented by: [email or web address] Admin: 08/07/20 08:17 Dose: 100 mls/hr Documented by: [email or web address] Infusion: 08/06/20 11:00 Dose: 0 mls/hr Documented by: [email or web address] Admin: 08/06/20 09:18 Dose: 100 mls/hr Documented by: [email or web address] Infusion: 08/05/20 09:47 Dose: 0 mls/hr Documented by: [email or web address] Admin: 08/05/20 08:17 Dose: 100 mls/hr Documented by: [email or web address] Infusion: 08/04/20 10:42 Dose: 0 mls/hr Documented by: [email or web address] Admin: 08/04/20 09:03 Dose: 100 mls/hr Documented by: MARIA DEL ROSARIO Metronidazole (Flagyl) 500 mg in 100 mls @ 100 mls/hr IV Q6H COLT; Protocol Last Admin: 08/09/20 12:09 Dose: 100 mls/hr Documented by: Infusion: 08/09/20 06:32 Dose: 0 mls/hr Documented by: Admin: 08/09/20 05:24 Dose: 100 mls/hr Documented by: Infusion: 08/09/20 00:30 Dose: 100 mls/hr Documented by: Admin: 08/08/20 23:28 Dose: 100 mls/hr Documented by: Infusion: 08/08/20 18:40 Dose: 100 mls/hr Documented by: Admin: 08/08/20 17:16 Dose: 100 mls/hr Documented by: Infusion: 08/08/20 12:26 Dose: 0 mls/hr Documented by: Admin: 08/08/20 11:18 Dose: 100 mls/hr Documented by: Infusion: 08/08/20 08:30 Dose: 0 mls/hr Documented by: Admin: 08/08/20 06:07 Dose: 100 mls/hr Documented by: Infusion: 08/08/20 01:35 Dose: 100 mls/hr Documented by: Admin: 08/08/20 00:31 Dose: 100 mls/hr Documented by: Infusion: 08/07/20 20:04 Dose: 0 mls/hr Documented by: Admin: 08/07/20 18:59 Dose: 100 mls/hr Documented by: [email or web address] Infusion: 08/07/20 13:39 Dose: 0 mls/hr Documented by: [email or web address] Admin: 08/07/20 12:33 Dose: 100 mls/hr Documented by: [email or web address] Infusion: 08/07/20 08:20 Dose: 0 mls/hr Documented by: [email or web address] Admin: 08/07/20 06:40 Dose: 100 mls/hr Documented by: [email or web address] Infusion: 08/07/20 02:45 Dose: 100 mls/hr Documented by: Admin: 08/07/20 01:35 Dose: 100 mls/hr Documented by: Infusion: 08/06/20 19:10 Dose: 100 mls/hr Documented by: Admin: 08/06/20 18:10 Dose: 100 mls/hr Documented by: [email or web address] Infusion: 08/06/20 13:05 Dose: 0 mls/hr Documented by: [email or web address] Admin: 08/06/20 11:54 Dose: 100 mls/hr Documented by: [email or web address] Infusion: 08/06/20 07:35 Dose: 0 mls/hr Documented by: [email or web address] Admin: 08/06/20 06:29 Dose: 100 mls/hr Documented by: Infusion: 08/06/20 02:55 Dose: 0 mls/hr Documented by: Admin: 08/06/20 01:51 Dose: 100 mls/hr Documented by: Infusion: 08/05/20 19:00 Dose: 0 mls/hr Documented by: Admin: 08/05/20 17:57 Dose: 100 mls/hr Documented by: [email or web address] Infusion: 08/05/20 13:58 Dose: 0 mls/hr Documented by: [email or web address] Admin: 08/05/20 11:52 Dose: 100 mls/hr Documented by: [email or web address] Infusion: 08/05/20 07:10 Dose: 0 mls/hr Documented by: [email or web address] Admin: 08/05/20 06:01 Dose: 100 mls/hr Documented by: Infusion: 08/05/20 01:35 Dose: 0 mls/hr Documented by: Admin: 08/05/20 00:33 Dose: 100 mls/hr Documented by: Infusion: 08/04/20 18:55 Dose: 0 mls/hr Documented by: Admin: 08/04/20 17:51 Dose: 100 mls/hr Documented by: MARIA DEL ROSARIO Infusion: 08/04/20 12:57 Dose: 0 mls/hr Documented by: [email or web address] Admin: 08/04/20 11:41 Dose: 100 mls/hr Documented by: [email or web address] Infusion: 08/04/20 06:50 Dose: 0 mls/hr Documented by: [email or web address] Admin: 08/04/20 05:39 Dose: 100 mls/hr Documented by: Infusion: 08/04/20 01:16 Dose: 0 mls/hr Documented by: Admin: 08/04/20 00:16 Dose: 100 mls/hr Documented by: Infusion: 08/03/20 18:55 Dose: 0 mls/hr Documented by: Admin: 08/03/20 17:55 Dose: 100 mls/hr Documented by: KIRSTIN Metoclopramide HCl (Metoclopramide 10 Mg/2 Ml Vial) 10 mg IV Q6 COLT [facility] Admin: 08/09/20 12:09 Dose: 10 mg Documented by: Admin: 08/09/20 05:24 Dose: 10 mg Documented by: Admin: 08/08/20 23:28 Dose: 10 mg Documented by: Admin: 08/08/20 17:16 Dose: 10 mg Documented by: Admin: 08/08/20 11:18 Dose: 10 mg Documented by: Admin: 08/08/20 06:07 Dose: 10 mg Documented by: Admin: 08/08/20 00:31 Dose: Not Given Documented by: Admin: 08/07/20 17:31 Dose: 10 mg Documented by: MARIA DEL ROSARIO Admin: 08/07/20 11:32 Dose: 10 mg Documented by: MARIA DEL ROSARIO Admin: 08/07/20 05:50 Dose: 10 mg Documented by: Admin: 08/07/20 00:55 Dose: 10 mg Documented by: Admin: 08/06/20 17:37 Dose: 10 mg Documented by: MARIA DEL ROSARIO Admin: 08/06/20 11:53 Dose: 10 mg Documented by: MARIA DEL ROSARIO Admin: 08/06/20 05:53 Dose: 10 mg Documented by: Admin: 08/06/20 01:00 Dose: 10 mg Documented by: Admin: 08/05/20 17:18 Dose: 10 mg Documented by: MARIA DEL ROSARIO Admin: 08/05/20 11:52 Dose: 10 mg Documented by: MARIA DEL ROSARIO Admin: 08/05/20 05:28 Dose: 10 mg Documented by: Admin: 08/05/20 05:27 Dose: 10 mg Documented by: Admin: 08/04/20 23:50 Dose: 10 mg Documented by: Admin: 08/04/20 17:51 Dose: 10 mg Documented by: MARIA DEL ROSARIO Admin: 08/04/20 11:41 Dose: 10 mg Documented by: MARIA DEL ROSARIO Admin: 08/04/20 05:39 Dose: 10 mg Documented by: Admin: 08/04/20 00:16 Dose: 10 mg Documented by: Admin: 08/03/20 17:56 Dose: 10 mg Documented by: KIRSTIN Pantoprazole Sodium (Pantoprazole 40 Mg Vial) 40 mg IV BIDAC [facility] Admin: 08/09/20 08:24 Dose: 40 mg Documented by: Admin: 08/08/20 17:16 Dose: 40 mg Documented by: Admin: 08/08/20 07:25 Dose: 40 mg Documented by: Admin: 08/07/20 17:31 Dose: 40 mg Documented by: MARIA DEL ROSARIO Admin: 08/07/20 06:45 Dose: 40 mg Documented by: MARIA DEL ROSARIO Admin: 08/06/20 16:48 Dose: 40 mg Documented by: [email or web address] Admin: 08/06/20 09:37 Dose: 40 mg Documented by: [email or web address] Admin: 08/05/20 16:48 Dose: 40 mg Documented by: MARIA DEL ROSARIO Admin: 08/05/20 07:01 Dose: 40 mg Documented by: MARIA DEL ROSARIO Admin: 08/04/20 16:36 Dose: 40 mg Documented by: MARIA DEL ROSARIO Admin: 08/04/20 07:34 Dose: 40 mg Documented by: MARIA DEL ROSARIO Admin: 08/03/20 17:45 Dose: Not Given Documented by: KIRSTIN Sodium Chloride (0.9 % Sodium Chloride 10 Ml Syringe) 10 ml IV Q8 COLT Last Admin: 08/09/20 12:10 Dose: 10 ml Documented by: Admin: 08/09/20 05:58 Dose: 10 ml Documented by: Admin: 08/08/20 21:35 Dose: Not Given Documented by: Admin: 08/08/20 15:44 Dose: 10 ml Documented by: Admin: 08/08/20 06:11 Dose: 10 ml Documented by: Admin: 08/07/20 22:30 Dose: Not Given Documented by: Admin: 08/07/20 15:07 Dose: 10 ml Documented by: MARIA DEL ROSARIO Admin: 08/07/20 05:50 Dose: 10 ml Documented by: Admin: 08/06/20 21:35 Dose: 10 ml Documented by: Admin: 08/06/20 14:11 Dose: Not Given Documented by: MARIA DEL ROSARIO Admin: 08/06/20 06:03 Dose: Not Given Documented by: Admin: 08/05/20 23:13 Dose: Not Given Documented by: Admin: 08/05/20 13:58 Dose: Not Given Documented by: MARIA DEL ROSARIO Admin: 08/05/20 05:36 Dose: Not Given Documented by: Admin: 08/04/20 22:58 Dose: Not Given Documented by: Admin: 08/04/20 14:14 Dose: Not Given Documented by: MARIA DEL ROSARIO Admin: 08/04/20 05:13 Dose: Not Given Documented by: Admin: 08/03/20 20:44 Dose: Not Given Documented by: SHANIKA Shift Summary 08/09/20 02:11 Shift Summary by Ebony Garcia Additional Comments: Pt is A/O, independent to BR. Sigmoid colectomy on 08/03/20, tolerating soft diet well. No complaints of pain or nausea. Multiple soft brownh BM's this shift. Abd incision wounds cleaned and dressings changed. RLQ ANG draining small amts of serosanguineous fluid. Possible d/c on 08/09/20 Initialized on 08/09/20 02:11 - END OF NOTE
--- NOTE | 2020-08-10 06:43 | Operative Note ---
DATE OF OPERATION: 08/03/2020 PREOPERATIVE DIAGNOSIS: Sigmoid colon stricture. POSTOPERATIVE DIAGNOSIS: Acute and chronic diverticulitis with sigmoid colon stricture. PROCEDURE: Sigmoid colectomy with primary closure. SURGEON: Pancho Patel M.D. FINDINGS: A 10 inch segment of sigmoid colon with acute and chronic inflammation with high-grade stricture. DESCRIPTION OF PROCEDURE: Under general anesthesia, the patient's abdomen was prepped and draped in a sterile field. Time-out procedure was carried out as per protocol. A midline incision was made. Exploration of the abdomen revealed a very thickened fibrotic nodular segment of sigmoid colon with acute and chronic inflammation. There was no gross pus. Irrigation was carried out. The inflamed segment was circumferentially dissected. An area about 2 inches above and below the inflamed segment was chosen and the colon was divided using a Contour stapler. The mesocolon was divided using the Scan & Targett hemostatic device. The proximal sigmoid and descending colon were mobilized up to the splenic flexure to acquire more length. The end of the sigmoid would then reach easily into the pelvis. The rectal stump was trimmed and had excellent bleeding. Hemostasis was achieved with electrocautery and with suture ligatures of 3-0 silk. An end-to-side anastomosis was performed using an inner row of running 2-0 Monocryl and an outer row of running locking 2-0 Prolene. A Nishant drain was placed in the depth of the pelvis and brought out through a right lateral incision. Irrigation was carried out. Sponge, needle, instrument, and blade counts were verified as correct. The instrument table were changed and gloves and gowns were changed. The nasogastric tube was positioned in the stomach. The fascia was closed with running locking #1 Prolene. Subcutaneous fat was closed with running locking 2-0 Monocryl. Skin was closed with annette. The drain was secured with 2-0 nylon. The patient tolerated the procedure well. Tegaderm dressing was placed. He was awakened, transferred to a bed, and taken to the postanesthetic care unit in satisfactory condition. LCS:stephen Job ID: [id number] Doc ID: [id number] Pancho Patel M.D.
== END 2020-08-09 16:00 | disposition home or self-care (01) | DRG 330 ==
LOC: MEDSUR 08:34
PROVIDERS: ADMIT Family Medicine Adult Medicine; ATTEND Family Medicine Adult Medicine